=== PATIENT | male | born 1945 | race Caucasian/White ===

== ENCOUNTER 2021-09-25 05:51 | Inpatient (IN) ==
[2021-09-25] MEDS ORDERED: Heparin 5000 UNITS/ML 1 mL VIAL ONE (06:00)
[2021-09-25] MEDS ORDERED: Buffered Lidocaine 1% SYRIN 1 ml INTRADERM ONE (06:00)
[2021-09-25] MEDS ORDERED: Lactated Ringers 1000 ml BAG 1,000 ML IV SCH ×3 (06:00→23:56)
[2021-09-25] MEDS ORDERED: Ertapenem 1 GM in NS 0.9% 50 ML IVPB ONE (07:00)
[2021-09-25] MEDS ORDERED: Iohexol 180 (CONTRAST) 10 ML SDV IV ONE ×2 (07:02→08:02)
[2021-09-25] MEDS ORDERED: Lidocaine 1% w EPI 1:100,000 MDV 20 ML VIAL ONE (07:02)
[2021-09-25] MEDS ORDERED: Bupivacaine 0.25% SDV 30 ML ONE ×2 (07:02→15:40)
[2021-09-25] MEDS ORDERED: DiMENhydriNATE IV 50 mg/ml 1 ml VIAL IV PUSH PRN (07:15)
[2021-09-25] MEDS ORDERED: fentaNYL 100 mcg/2 ml 50 MCG/ML VIAL IV PRN (07:15)
[2021-09-25] MEDS ORDERED: HYDROmorphone 1 MG/1 ML SYRINGE IV PRN (07:15)
[2021-09-25] MEDS ORDERED: Naloxone 0.4 mg VIAL 0.4 mg/ml 1 ml VIAL IV PRN (07:15)
[2021-09-25] MEDS ORDERED: Acetaminophen IV 1 GM/100ML 100 ML IV ONE ×2 (07:15→13:04)
[2021-09-25] MEDS ORDERED: Ondansetron 4 mg VIAL 2 MG/ML 2 ml VIAL IV PRN ×2 (07:15→13:43)
[2021-09-25] MEDS ORDERED: Lidocaine 2% PF 5 ML VIAL ONE ×2 (07:18→15:38)
[2021-09-25] MEDS ORDERED: Propofol 10 MG/ML 20 ML BTL ONE ×2 (07:18→15:38)
[2021-09-25] MEDS ORDERED: Rocuronium 50 mg VIAL 10 mg/ml 5 ml VIAL (50 mg) ONE ×2 (07:18→15:39)
[2021-09-25] MEDS ORDERED: Midazolam 2 mg/2 ml VIAL 1 mg/ml 2 ml VIAL (2 mg) ONE (07:19)
[2021-09-25] MEDS ORDERED: fentaNYL 250 mcg/5 ml 50 MCG/ML 5 ml VIAL (250 MCG) ONE ×2 (07:19→15:38)
[2021-09-25] MEDS ORDERED: Artificial Tear OPHTH.OINT 3.5 GM ONE (08:29)
[2021-09-25] MEDS ORDERED: Dexamethasone IV 4 MG/ML VIAL 1 ml VIAL ONE (08:53)
[2021-09-25] MEDS ORDERED: Ondansetron 4 mg VIAL 2 MG/ML 2 ml VIAL ONE (08:53)
[2021-09-25] MEDS ORDERED: Ketamine HCL 50 mg/ml 10 ml VIAL (500 MG) ONE (08:55)
[2021-09-25] MEDS ORDERED: Phenylephrine 40 mcg/mL 10mL (400mcg) SYRINGE ONE ×5 (09:19→16:28)
[2021-09-25] MEDS ORDERED: HYDROmorphone 0.5 MG/0.5 ML SYRINGE ONE ×3 (10:03→13:33)
[2021-09-25] MEDS ORDERED: Sugammadex 500 MG/5 ML 5 ml VIAL IV PUSH ONE (12:37)
[2021-09-25] MEDS ORDERED: Calcium CHLORIDE 10% SYRINGE 1 GM/10 ML ONE ×2 (14:58→18:02)
[2021-09-25 15:00] LABS: Hematocrit 31 % (42-52); Mean Corpuscular HGB Conc 33 g/dL (31-36); Mean Corpuscular Hemoglobin 29 pg (27-31); Mean Corpuscular Volume 89 fL (80-94); Platelet Count 239 10^3/uL (150-450); Red Blood Count 3.43 10^6 /uL (4.18-5.48); Red Cell Distribution Width 15 % (10-15); White Blood Count 15.9 10^3/uL (3.5-10.8)
[2021-09-25 15:02] LABS: PCO2 Arterial 28 mmHg (35-45); PO2 Arterial 116 mmHg (80-100)
[2021-09-25] MEDS ORDERED: Norepinephrine IV 1 MG/ML 4 ML VIAL ONE (15:04)
[2021-09-25 15:19] LABS: Troponin I 0.01 ng/mL (<0.03)
[2021-09-25] MEDS ORDERED: Perflutren Lipid Microsphere 3 ML VIAL ONE (15:19)
[2021-09-25] MEDS ORDERED: Phenylephrine IV 10 MG/ML 1 ml VIAL ONE ×2 (15:38→16:28)
[2021-09-25] MEDS ORDERED: Etomidate 20 mg/10 ml 2 MG/ML 10 ml VIAL ONE (15:38)
[2021-09-25 15:41] LABS: Hematocrit 23 % (42-52); Hemoglobin 7.4 g/dL (14.0-18.0); Mean Corpuscular HGB Conc 32 g/dL (31-36); Mean Corpuscular Hemoglobin 29 pg (27-31); Mean Corpuscular Volume 91 fL (80-94); Mean Platelet Volume 8.2 fL (7.4-10.4); Platelet Count 194 10^3/uL (150-450); Red Blood Count 2.54 10^6 /uL (4.18-5.48); Red Cell Distribution Width 15 % (10-15)
[2021-09-25 15:41] LABS: Magnesium 1.7 mg/dL (1.9-2.7); Phosphorus 4.9 mg/dL (2.5-5.0); Potassium 4.1 mmol/L (3.5-5.0); eGFR CKD-EPI 85.1 (>60)
[2021-09-25] MEDS ORDERED: Succinylcholine 200 mg VIAL 20 mg/ml 10 ml VIAL (200 mg) ONE (15:42)
[2021-09-25 15:44] LABS: ABS Lymphocytes 1.2 10^3/ul (1.0-4.8); ABS Monocytes 1.6 10^3/ul (0-0.8); ABS Neutrophils 19.1 10^3/ul (1.5-7.7); Eosinophil % 0.1 %; Lymphocyte % 5.7 %
[2021-09-25] MEDS ORDERED: Midazolam 5 mg/5 ml VIAL 1 mg/ml 5 ml VIAL (5 mg) ONE (16:14)
[2021-09-25] MEDS ORDERED: Albumin Human 5% 12.5 GM/250 ML BTL IV ONE ×2 (16:18→16:46)
[2021-09-25] MEDS ORDERED: Albumin Human 25% 12.5 GM/50 ML BTL IV ONE (16:18)
[2021-09-25] MEDS ORDERED: EPINEPHrine SYR 0.1MG/ML 10 ml SYRINGE ONE (16:28)
[2021-09-25 17:35] LABS: Hematocrit 26 % (42-52); Mean Corpuscular HGB Conc 31 g/dL (31-36); Mean Corpuscular Hemoglobin 29 pg (27-31); Mean Corpuscular Volume 93 fL (80-94); Mean Platelet Volume 8.2 fL (7.4-10.4); PCO2 Arterial 64 mmHg (35-45); PO2 Arterial 126 mmHg (80-100); Platelet Count 135 10^3/uL (150-450); Red Blood Count 2.74 10^6 /uL (4.18-5.48); Red Cell Distribution Width 16 % (10-15); White Blood Count 21.4 10^3/uL (3.5-10.8)
[2021-09-25 17:41] LABS: ABS Lymphocytes 3.1 10^3/ul (1.0-4.8); ABS Monocytes 1.8 10^3/ul (0-0.8); ABS Neutrophils 16.4 10^3/ul (1.5-7.7); Eosinophil % 0.1 %; Lymphocyte % 14.7 %
[2021-09-25] MEDS ORDERED: Sodium Bicarbonate 8.4% 10 ML VIAL IV ONE (17:48)
[2021-09-25] MEDS ORDERED: Sodium Bicarbonate 8.4% SYR 50 ml SYRINGE ONE (17:50)
[2021-09-25] MEDS ORDERED: Magnesium Sulfate 2 gm BAG 2 GM/50 ML BAG IVPB ONE (18:30)
[2021-09-25] MEDS ORDERED: fentaNYL 100 mcg/2 ml 50 MCG/ML VIAL IV SLOW PU ONE (18:32)
[2021-09-25] MEDS ORDERED: fentaNYL 100 mcg/2 ml 50 MCG/ML VIAL ONE (18:37)
[2021-09-25 18:48] LABS: Hematocrit 24 % (42-52); Mean Corpuscular HGB Conc 33 g/dL (31-36); Mean Corpuscular Hemoglobin 30 pg (27-31); Mean Corpuscular Volume 90 fL (80-94); Mean Platelet Volume 8.1 fL (7.4-10.4); Platelet Count 133 10^3/uL (150-450); Red Cell Distribution Width 15 % (10-15); White Blood Count 19.5 10^3/uL (3.5-10.8)
[2021-09-25 18:57] LABS: PCO2 Arterial 49 mmHg (35-45); PO2 Arterial 66 mmHg (80-100)
[2021-09-25 18:58] LABS: Activated Partial Thrombo Time 29.2 seconds (26.0-38.0); INR 1.89 (0.86-1.15)
[2021-09-25] MEDS ORDERED: fentaNYL INFUSION 50 mcg/mL VL 2,500 MCG/50 ML VIAL IV SCH (19:00)
[2021-09-25 19:24] LABS: Troponin I 0.05 ng/mL (<0.03)
[2021-09-25 19:28] LABS: ALT 19 U/L (7-52); AST 24 U/L (13-39); Albumin 2.5 g/dL (3.2-5.2); Albumin/Globulin Ratio 1.9 (1-3); Alkaline Phosphatase 29 U/L (35-149); Blood Urea Nitrogen 15 mg/dL (6-24); CO2 Carbon Dioxide 20 mmol/L (22-32); Calcium 8.8 mg/dL (8.6-10.3); Globulin 1.3 g/dL (2-4); Glucose 178 mg/dL (70-100); Magnesium 1.6 mg/dL (1.9-2.7); Phosphorus 7.3 mg/dL (2.5-5.0); Sodium 142 mmol/L (135-145); Total Protein 3.8 g/dL (6.4-8.9); eGFR CKD-EPI 68.2 (>60)
[2021-09-25 19:29] LABS: Anion Gap 10 mmol/L (2-11); Chloride 112 mmol/L (101-111)
[2021-09-25 19:32] LABS: ABS Lymphocytes 1.3 10^3/ul (1.0-4.8); ABS Monocytes 1.9 10^3/ul (0-0.8); ABS Neutrophils 16.3 10^3/ul (1.5-7.7); Eosinophil % 0.1 %; Lymphocyte % 6.7 %
[2021-09-25] MEDS ORDERED: metroNIDAZOLE IV 250 MG/50ML 50 ML IVPB SCH (20:00)
[2021-09-25] MEDS ORDERED: fentaNYL 100 mcg/2 ml 50 MCG/ML VIAL IV SLOW PU PRN (20:36)
[2021-09-25] MEDS ORDERED: cefTRIAXone 2 GM ADDV.VIAL 2 GM in NS 0.9% 100 ml BAG 100 ML IV SCH (21:00)
[2021-09-25] MEDS ORDERED: Lorazepam PYXIS KEY PRN (22:38)
[2021-09-25] MEDS ORDERED: LORazepam 2 mg VIAL 1 ml IV PUSH ONE (22:38)
[2021-09-25] MEDS ORDERED: Lorazepam PYXIS KEY ONE ×2 (22:48→22:54)
[2021-09-25] MEDS ORDERED: Dexmedetomidine 1,000 MCG in NS 0.9% 250 ml 240 ML IV SCH (23:00)
[2021-09-25] MEDS ORDERED: Norepinephrine 16MCG/ML BAG NS 4,000 MCG/250 ML BAG IV ONE (23:11)
[2021-09-25 23:39] LABS: ABS Lymphocytes 1.2 10^3/ul (1.0-4.8); ABS Monocytes 1.8 10^3/ul (0-0.8); ABS Neutrophils 12.5 10^3/ul (1.5-7.7); Hematocrit 20 % (42-52); Hemoglobin 6.4 g/dL (14.0-18.0); Mean Corpuscular HGB Conc 32 g/dL (31-36); Mean Corpuscular Hemoglobin 29 pg (27-31); Mean Corpuscular Volume 89 fL (80-94); Mean Platelet Volume 8.1 fL (7.4-10.4); Platelet Count 102 10^3/uL (150-450); Red Blood Count 2.22 10^6 /uL (4.18-5.48); Red Cell Distribution Width 16 % (10-15); White Blood Count 15.5 10^3/uL (3.5-10.8)
[2021-09-25] MEDS: Chlorhexidine MOUTHWASH 0.12% 15 ML UDC TOPICAL SCH (23:57)
[2021-09-26] MEDS ORDERED: LORazepam 2 mg VIAL 1 ml IV PUSH ONE (00:52)
[2021-09-26] MEDS ORDERED: Lorazepam PYXIS KEY ONE (00:57)
[2021-09-26] MEDS: Chlorhexidine MOUTHWASH 0.12% 15 ML UDC TOPICAL SCH ×4 (02:14→13:54)
[2021-09-26] MEDS ORDERED: Haloperidol 5 mg/ml SDV IV/IM 5 MG/ML AMP IM ONE (02:25)
[2021-09-26] MEDS ORDERED: diPHENhydraMINE IV 50 MG/ML 1 ml VIAL (BENADRYL) IM ONE (02:25)
[2021-09-26] MEDS ORDERED: LORazepam 2 mg VIAL 1 ml IM ONE (02:25)
[2021-09-26 03:48] LABS: ABS Lymphocytes 1.8 10^3/ul (1.0-4.8); ABS Monocytes 1.4 10^3/ul (0-0.8); ABS Neutrophils 10.1 10^3/ul (1.5-7.7); Hematocrit 26 % (42-52); Hemoglobin 8.8 g/dL (14.0-18.0); Lymphocyte % 13.4 %; Mean Corpuscular HGB Conc 33 g/dL (31-36); Mean Corpuscular Hemoglobin 30 pg (27-31); Mean Corpuscular Volume 89 fL (80-94); Mean Platelet Volume 8.5 fL (7.4-10.4); Nucleated Red Blood Cells % 0.1; Platelet Count 101 10^3/uL (150-450); Red Blood Count 2.94 10^6 /uL (4.18-5.48); Red Cell Distribution Width 15 % (10-15); White Blood Count 13.2 10^3/uL (3.5-10.8)
[2021-09-26 04:03] LABS: Albumin 2.6 g/dL (3.2-5.2); Albumin/Globulin Ratio 1.7 (1-3); Calcium 7.8 mg/dL (8.6-10.3); Globulin 1.5 g/dL (2-4); Potassium 4.3 mmol/L (3.5-5.0); Total Bilirubin 1.3 mg/dL (0.2-1.0); Total Protein 4.1 g/dL (6.4-8.9); eGFR CKD-EPI 66.8 (>60)
[2021-09-26] MEDS: Pantoprazole VIAL 40 MG VIAL IV SCH (07:27)
[2021-09-26] MEDS ORDERED: Norepinephrine 16MCG/ML BAG NS 4,000 MCG/250 ML BAG IV SCH (09:00)
[2021-09-26] MEDS ORDERED: Perflutren Lipid Microsphere 3 ML VIAL ONE (09:13)
[2021-09-26 10:13] LABS: PCO2 Arterial 31 mmHg (35-45); PO2 Arterial 75 mmHg (80-100)
[2021-09-26 11:58] LABS: Hematocrit 24 % (42-52); Hemoglobin 8.3 g/dL (14.0-18.0); Mean Corpuscular HGB Conc 34 g/dL (31-36); Mean Corpuscular Hemoglobin 30 pg (27-31); Mean Corpuscular Volume 87 fL (80-94); Mean Platelet Volume 8.6 fL (7.4-10.4); Platelet Count 103 10^3/uL (150-450); Red Blood Count 2.76 10^6 /uL (4.18-5.48); Red Cell Distribution Width 15 % (10-15); White Blood Count 10.5 10^3/uL (3.5-10.8)
[2021-09-26] MEDS ORDERED: Piperacillin/Tazobac ADVAN 3.375 GM in NS 0.9% 100 ml BAG 100 ML IV ONE (14:16)
[2021-09-26] MEDS ORDERED: Lactated Ringers 1000 ml BAG 1,000 ML IV SCH (15:00)
[2021-09-26] MEDS ORDERED: Zosyn per Pharmacy NOTE FOLLOW UP SCH (15:00)
[2021-09-26] MEDS: ZOSYN 3.375 GM Q8H per EXTENDED INFUSION IV SCH (19:44)
[2021-09-26] MEDS: HYDROmorphone 0.5 MG/0.5 ML SYRINGE IV SLOW PU PRN (22:20)
[2021-09-26] MEDS: Metoprolol Tartrate 5 mg VIAL 5 ml VIAL (1 mg/ml) IV PRN (22:24)
[2021-09-27 00:39] LABS: ABS Lymphocytes 1.9 10^3/ul (1.0-4.8); ABS Monocytes 0.7 10^3/ul (0-0.8); ABS Neutrophils 7.1 10^3/ul (1.5-7.7); Eosinophil % 0.1 %; Hematocrit 22 % (42-52); Hemoglobin 7.6 g/dL (14.0-18.0); Lymphocyte % 19.5 %; Mean Corpuscular HGB Conc 35 g/dL (31-36); Mean Corpuscular Hemoglobin 30 pg (27-31); Mean Corpuscular Volume 87 fL (80-94); Mean Platelet Volume 8.3 fL (7.4-10.4); Platelet Count 100 10^3/uL (150-450); Red Blood Count 2.49 10^6 /uL (4.18-5.48); Red Cell Distribution Width 15 % (10-15); White Blood Count 9.8 10^3/uL (3.5-10.8)
[2021-09-27 00:46] LABS: INR 1.65 (0.86-1.15)
[2021-09-27] MEDS ORDERED: Digoxin IV 0.5 MG/2 ML AMP (0.25 MG/ML) IV SLOW PU ONE (02:54)
[2021-09-27] MEDS: ZOSYN 3.375 GM Q8H per EXTENDED INFUSION IV SCH ×2 (03:21→10:10)
[2021-09-27 04:18] LABS: Hematocrit 22 % (42-52); Hemoglobin 7.6 g/dL (14.0-18.0); Mean Corpuscular HGB Conc 34 g/dL (31-36); Mean Corpuscular Hemoglobin 30 pg (27-31); Mean Corpuscular Volume 89 fL (80-94); Mean Platelet Volume 8.4 fL (7.4-10.4); Platelet Count 105 10^3/uL (150-450); Red Blood Count 2.53 10^6 /uL (4.18-5.48); Red Cell Distribution Width 15 % (10-15); White Blood Count 10.2 10^3/uL (3.5-10.8)
[2021-09-27 04:23] LABS: INR 1.6 (0.86-1.15)
[2021-09-27 04:34] LABS: Blood Urea Nitrogen 16 mg/dL (6-24); CO2 Carbon Dioxide 27 mmol/L (22-32); Calcium 7.7 mg/dL (8.6-10.3); Glucose 102 mg/dL (70-100); Magnesium 1.8 mg/dL (1.9-2.7); Phosphorus 1.5 mg/dL (2.5-5.0); Potassium 3.4 mmol/L (3.5-5.0); Sodium 142 mmol/L (135-145); eGFR CKD-EPI 94.7 (>60)
[2021-09-27 04:50] LABS: Anion Gap 3 mmol/L (2-11); Chloride 112 mmol/L (101-111)
[2021-09-27] MEDS: Metoprolol Tartrate 5 mg VIAL 5 ml VIAL (1 mg/ml) IV PRN (06:29)
[2021-09-27] MEDS ORDERED: Diltiazem IV BAG D5W Premix 125 MG/125 ML BAG IV SCH ×2 (07:00→10:08)
[2021-09-27] MEDS: HYDROmorphone 0.5 MG/0.5 ML SYRINGE IV SLOW PU PRN ×5 (07:08→18:38)
[2021-09-27] MEDS: Pantoprazole VIAL 40 MG VIAL IV SCH (07:08)
[2021-09-27] MEDS ORDERED: Magnesium Sulfate 2 gm BAG 2 GM/50 ML BAG IVPB ONE (07:53)
[2021-09-27] MEDS ORDERED: Potassium Chloride LIQUID 20 MEQ/15 ML LIQUID PO ONE (07:53)
[2021-09-27] MEDS ORDERED: Iohexol 350 (CONTRAST) 500 ML MDV IV ONE (08:41)
[2021-09-27 08:52] LABS: Troponin I 0.14 ng/mL (<0.03)
[2021-09-27] MEDS: Potassium & Sodium Phos 250 mg = 1 PACKET PO SCH ×4 (09:36→20:01)
[2021-09-27 10:49] LABS: Troponin I 0.11 ng/mL (<0.03)
[2021-09-27 18:28] LABS: ABS Monocytes 0.8 10^3/ul (0-0.8); ABS Neutrophils 10.5 10^3/ul (1.5-7.7); Eosinophil % 0.1 %; Hematocrit 24 % (42-52); Hemoglobin 8.2 g/dL (14.0-18.0); Lymphocyte % 14.9 %; Mean Corpuscular HGB Conc 34 g/dL (31-36); Mean Corpuscular Hemoglobin 30 pg (27-31); Mean Corpuscular Volume 88 fL (80-94); Mean Platelet Volume 7.9 fL (7.4-10.4); Platelet Count 141 10^3/uL (150-450); Red Blood Count 2.75 10^6 /uL (4.18-5.48); Red Cell Distribution Width 15 % (10-15); White Blood Count 13.4 10^3/uL (3.5-10.8)
[2021-09-28] MEDS: HYDROmorphone 0.5 MG/0.5 ML SYRINGE IV SLOW PU PRN ×2 (00:01→22:03)
[2021-09-28 05:18] LABS: ABS Lymphocytes 1.7 10^3/ul (1.0-4.8); ABS Monocytes 0.7 10^3/ul (0-0.8); ABS Neutrophils 8.4 10^3/ul (1.5-7.7); Eosinophil % 0.4 %; Hematocrit 24 % (42-52); Hemoglobin 8.1 g/dL (14.0-18.0); Lymphocyte % 15.8 %; Mean Corpuscular HGB Conc 34 g/dL (31-36); Mean Corpuscular Hemoglobin 30 pg (27-31); Mean Corpuscular Volume 88 fL (80-94); Mean Platelet Volume 7.9 fL (7.4-10.4); Platelet Count 145 10^3/uL (150-450); Red Blood Count 2.73 10^6 /uL (4.18-5.48); Red Cell Distribution Width 15 % (10-15); White Blood Count 10.8 10^3/uL (3.5-10.8)
[2021-09-28 05:34] LABS: Albumin/Globulin Ratio 1.4 (1-3); C Reactive Protein 106.6 mg/L (<8.01); Globulin 2.2 g/dL (2-4); Magnesium 1.9 mg/dL (1.9-2.7); Phosphorus 1.9 mg/dL (2.5-5.0); Potassium 3.3 mmol/L (3.5-5.0); Total Bilirubin 0.5 mg/dL (0.2-1.0); Total Protein 5.2 g/dL (6.4-8.9); eGFR CKD-EPI 102.3 (>60)
[2021-09-28 05:45] LABS: INR 1.38 (0.86-1.15)
[2021-09-28] MEDS ORDERED: Potassium Chloride LIQUID 20 MEQ/15 ML LIQUID PO ONE (07:36)
[2021-09-28] MEDS: Potassium & Sodium Phos 250 mg = 1 PACKET PO SCH ×4 (09:15→20:00)
[2021-09-28] MEDS: Pantoprazole VIAL 40 MG VIAL IV SCH (09:16)
[2021-09-28] MEDS ORDERED: Acetylcysteine ORAL SOL 200 mg/ml 30 ml VIAL PO ONE (12:56)
[2021-09-28] MEDS ORDERED: Acetylcysteine INHALATION SOL 200 MG/ML NEB.SOLN 10 ML ONE ×2 (13:37→15:01)
[2021-09-28] MEDS ORDERED: Potassium Phosphate IV 15 MMOLE in NS 0.9% 250 ml 250 ML IVPB ONE (13:52)
[2021-09-28] MEDS ORDERED: fentaNYL 250 mcg/5 ml 50 MCG/ML 5 ml VIAL (250 MCG) ONE (14:32)
[2021-09-28] MEDS ORDERED: Midazolam 10 mg/10 ml VIAL 1 mg/ml 10 ml VIAL (10 mg) ONE (14:32)
[2021-09-28] MEDS ORDERED: Acetylcysteine INHALATION SOL 200 MG/ML NEB.SOLN 10 ML INH ONE (15:01)
[2021-09-29 04:36] LABS: ABS Eosinophils 0.1 10^3/ul (0-0.6); ABS Lymphocytes 2.4 10^3/ul (1.0-4.8); ABS Monocytes 0.9 10^3/ul (0-0.8); ABS Neutrophils 8.8 10^3/ul (1.5-7.7); Eosinophil % 1.1 %; Hematocrit 24 % (42-52); Hemoglobin 7.9 g/dL (14.0-18.0); Lymphocyte % 19.3 %; Mean Corpuscular HGB Conc 34 g/dL (31-36); Mean Corpuscular Hemoglobin 30 pg (27-31); Mean Corpuscular Volume 89 fL (80-94); Mean Platelet Volume 7.7 fL (7.4-10.4); Nucleated Red Blood Cells % 0.1; Platelet Count 156 10^3/uL (150-450); Red Blood Count 2.66 10^6 /uL (4.18-5.48); Red Cell Distribution Width 15 % (10-15); White Blood Count 12.2 10^3/uL (3.5-10.8)
[2021-09-29 04:52] LABS: Calcium 8.1 mg/dL (8.6-10.3); Phosphorus 2.5 mg/dL (2.5-5.0); Potassium 3.4 mmol/L (3.5-5.0); eGFR CKD-EPI 102.3 (>60)
[2021-09-29] MEDS ORDERED: Potassium Chloride LIQUID 20 MEQ/15 ML LIQUID PO ONE (07:45)
[2021-09-29] MEDS: Potassium & Sodium Phos 250 mg = 1 PACKET PO SCH ×3 (08:12→21:08)
[2021-09-29] MEDS: HYDROmorphone 0.5 MG/0.5 ML SYRINGE IV SLOW PU PRN ×4 (08:12→21:08)
[2021-09-29] MEDS: Pantoprazole VIAL 40 MG VIAL IV SCH (08:12)
[2021-09-29] MEDS ORDERED: Enoxaparin 80 MG/0.8 ML SYR SUBCUT SCH (09:00)
[2021-09-29] MEDS: Enoxaparin 80 MG/0.8 ML SYR SUBCUT SCH (12:14)
[2021-09-29 18:46] LABS: Hematocrit 25 % (42-52); Hemoglobin 8.4 g/dL (14.0-18.0); Mean Corpuscular HGB Conc 34 g/dL (31-36); Mean Corpuscular Hemoglobin 30 pg (27-31); Mean Corpuscular Volume 90 fL (80-94); Mean Platelet Volume 7.6 fL (7.4-10.4); Platelet Count 201 10^3/uL (150-450); Red Blood Count 2.79 10^6 /uL (4.18-5.48); Red Cell Distribution Width 15 % (10-15); White Blood Count 15.3 10^3/uL (3.5-10.8)
[2021-09-30] MEDS: HYDROmorphone 0.5 MG/0.5 ML SYRINGE IV SLOW PU PRN ×3 (00:03→19:00)
[2021-09-30] MEDS: Enoxaparin 80 MG/0.8 ML SYR SUBCUT SCH ×2 (00:03→12:16)
[2021-09-30 05:10] LABS: Hematocrit 23 % (42-52); Hemoglobin 7.7 g/dL (14.0-18.0); Mean Corpuscular HGB Conc 33 g/dL (31-36); Mean Corpuscular Hemoglobin 30 pg (27-31); Mean Corpuscular Volume 90 fL (80-94); Mean Platelet Volume 7.8 fL (7.4-10.4); Platelet Count 177 10^3/uL (150-450); Red Blood Count 2.54 10^6 /uL (4.18-5.48); Red Cell Distribution Width 15 % (10-15); White Blood Count 11.6 10^3/uL (3.5-10.8)
[2021-09-30 05:27] LABS: Calcium 8.1 mg/dL (8.6-10.3); Magnesium 1.9 mg/dL (1.9-2.7); Phosphorus 2.1 mg/dL (2.5-5.0); Potassium 3.6 mmol/L (3.5-5.0); eGFR CKD-EPI 100.8 (>60)
[2021-09-30] MEDS: Pantoprazole VIAL 40 MG VIAL IV SCH (08:49)
[2021-09-30] MEDS: Potassium & Sodium Phos 250 mg = 1 PACKET PO SCH ×3 (08:50→19:44)
[2021-09-30] MEDS ORDERED: Magnesium Sulfate IV 1GM/100ML 1 GM/100 ML BAG IV ONE (11:00)
[2021-09-30 14:57] LABS: Hematocrit 25 % (42-52); Hemoglobin 8.3 g/dL (14.0-18.0); Mean Corpuscular HGB Conc 33 g/dL (31-36); Mean Corpuscular Hemoglobin 30 pg (27-31); Mean Corpuscular Volume 91 fL (80-94); Platelet Count 211 10^3/uL (150-450); Red Blood Count 2.74 10^6 /uL (4.18-5.48); Red Cell Distribution Width 15 % (10-15); White Blood Count 12.1 10^3/uL (3.5-10.8)
[2021-10-01] MEDS: Enoxaparin 80 MG/0.8 ML SYR SUBCUT SCH ×2 (00:52→11:25)
[2021-10-01 06:23] LABS: Hematocrit 25 % (42-52); Hemoglobin 8.6 g/dL (14.0-18.0); Mean Corpuscular HGB Conc 34 g/dL (31-36); Mean Corpuscular Hemoglobin 30 pg (27-31); Mean Corpuscular Volume 90 fL (80-94); Platelet Count 218 10^3/uL (150-450); Red Blood Count 2.82 10^6 /uL (4.18-5.48); Red Cell Distribution Width 15 % (10-15); White Blood Count 11.9 10^3/uL (3.5-10.8)
[2021-10-01 06:28] LABS: ABS Eosinophils 0.3 10^3/ul (0-0.6); ABS Lymphocytes 1.5 10^3/ul (1.0-4.8); ABS Neutrophils 9.1 10^3/ul (1.5-7.7); Eosinophil % 2.2 %; Lymphocyte % 12.5 %; Nucleated Red Blood Cells % 0.1
[2021-10-01 06:35] LABS: Albumin 3.1 g/dL (3.2-5.2); Albumin/Globulin Ratio 1.1 (1-3); Calcium 8.4 mg/dL (8.6-10.3); Globulin 2.8 g/dL (2-4); Potassium 3.8 mmol/L (3.5-5.0); Total Bilirubin 0.4 mg/dL (0.2-1.0); Total Protein 5.9 g/dL (6.4-8.9); eGFR CKD-EPI 101.3 (>60)
[2021-10-01] MEDS: Potassium & Sodium Phos 250 mg = 1 PACKET PO SCH ×3 (11:21→20:36)
[2021-10-01] MEDS: Pantoprazole VIAL 40 MG VIAL IV SCH (11:22)
[2021-10-01] MEDS: HYDROmorphone 0.5 MG/0.5 ML SYRINGE IV SLOW PU PRN (18:17)
[2021-10-02] MEDS: Enoxaparin 80 MG/0.8 ML SYR SUBCUT SCH ×2 (00:14→12:26)
[2021-10-02] MEDS: HYDROmorphone 0.5 MG/0.5 ML SYRINGE IV SLOW PU PRN ×4 (01:43→21:14)
[2021-10-02 08:01] LABS: Hematocrit 26 % (42-52); Hemoglobin 8.5 g/dL (14.0-18.0); Mean Corpuscular HGB Conc 33 g/dL (31-36); Mean Corpuscular Hemoglobin 30 pg (27-31); Mean Corpuscular Volume 91 fL (80-94); Mean Platelet Volume 7.9 fL (7.4-10.4); Platelet Count 269 10^3/uL (150-450); Red Blood Count 2.82 10^6 /uL (4.18-5.48); Red Cell Distribution Width 15 % (10-15); White Blood Count 9.3 10^3/uL (3.5-10.8)
[2021-10-02 08:03] LABS: ABS Eosinophils 0.3 10^3/ul (0-0.6); ABS Lymphocytes 1.5 10^3/ul (1.0-4.8); ABS Monocytes 0.9 10^3/ul (0-0.8); ABS Neutrophils 6.6 10^3/ul (1.5-7.7); Eosinophil % 3.1 %; Lymphocyte % 16.1 %; Nucleated Red Blood Cells % 0.1
[2021-10-02 08:17] LABS: Calcium 8.9 mg/dL (8.6-10.3); Potassium 3.7 mmol/L (3.5-5.0); eGFR CKD-EPI 99.3 (>60)
[2021-10-02] MEDS: Potassium & Sodium Phos 250 mg = 1 PACKET PO SCH ×3 (09:12→21:14)
[2021-10-02] MEDS: Pantoprazole VIAL 40 MG VIAL IV SCH (09:12)
[2021-10-03] MEDS: Enoxaparin 80 MG/0.8 ML SYR SUBCUT SCH ×2 (01:00→12:40)
[2021-10-03 05:01] LABS: Hematocrit 27 % (42-52); Hemoglobin 8.9 g/dL (14.0-18.0); Mean Corpuscular HGB Conc 33 g/dL (31-36); Mean Corpuscular Hemoglobin 30 pg (27-31); Mean Corpuscular Volume 90 fL (80-94); Mean Platelet Volume 7.9 fL (7.4-10.4); Platelet Count 316 10^3/uL (150-450); Red Blood Count 2.97 10^6 /uL (4.18-5.48); Red Cell Distribution Width 16 % (10-15); White Blood Count 8.7 10^3/uL (3.5-10.8)
[2021-10-03 05:04] LABS: ABS Eosinophils 0.4 10^3/ul (0-0.6); ABS Lymphocytes 2.2 10^3/ul (1.0-4.8); ABS Monocytes 0.8 10^3/ul (0-0.8); ABS Neutrophils 5.2 10^3/ul (1.5-7.7); Eosinophil % 4.6 %; Lymphocyte % 25.5 %; Nucleated Red Blood Cells % 0.1
[2021-10-03 05:15] LABS: Potassium 3.8 mmol/L (3.5-5.0); eGFR CKD-EPI 99.8 (>60)
[2021-10-03 06:12] LABS: Polychromasia 1+
[2021-10-03 06:13] LABS: Basophilic Stippling 1+
[2021-10-03 06:14] LABS: Target Cells 1+
[2021-10-03 06:15] LABS: Anisocytosis 1+; Tear Drop Cells 1+; Toxic Granulation 1+
[2021-10-03] MEDS: Pantoprazole VIAL 40 MG VIAL IV SCH (09:49)
[2021-10-03] MEDS: Potassium & Sodium Phos 250 mg = 1 PACKET PO SCH ×3 (09:50→19:57)
[2021-10-03 10:33] LABS: RBC Morphology Normal (Normal)
[2021-10-04] MEDS: Enoxaparin 80 MG/0.8 ML SYR SUBCUT SCH ×2 (01:17→11:28)
[2021-10-04] MEDS: Pantoprazole VIAL 40 MG VIAL IV SCH (08:21)
[2021-10-04] MEDS: Potassium & Sodium Phos 250 mg = 1 PACKET PO SCH ×3 (08:21→21:24)
[2021-10-04] MEDS ORDERED: cefTRIAXone 2 GM ADDV.VIAL 2 GM in NS 0.9% 100 ml BAG 100 ML IV ONE (16:17)
[2021-10-05] MEDS: Enoxaparin 80 MG/0.8 ML SYR SUBCUT SCH ×2 (01:41→12:45)
[2021-10-05] MEDS: Pantoprazole VIAL 40 MG VIAL IV SCH (08:27)
[2021-10-05] MEDS: Potassium & Sodium Phos 250 mg = 1 PACKET PO SCH ×2 (08:27→13:42)
[2021-10-05 10:57] VITALS: BP 123/64
== END 2021-10-05 14:05 | disposition home health service (06) | DRG 673 ==
LOC: AA 05:51 → ICU 18:34 → SSU 09-30 14:11
PROVIDERS: ADMIT Surgery; ATTEND Surgery